=== PATIENT | male | born 1980 | race Caucasian/White ===

== ENCOUNTER 2016-11-21 12:54 | Emergency (ER) | payer OTHER ==
--- NOTE | 2016-11-21 13:30 | ERRECORD ---
[facility] HPI WOUND CHECK (13:19 AGRE) CHIEF COMPLAINT: Patient presents for evaluation of chest wound. HISTORIAN: History provided by patient, HAD A PACEMAKER DEFIBRILLATOR PLACED ABOUT 3 WEEKS AGO AND NEED THE NATALI REMOVED. NO OTHER SYMPTOMS. LOCATION: Symptoms are localized, most severe to LEFT UPPER CHEST WALL. SEVERITY: Currently there are no symptoms. TIME COURSE: Gradual onset of symptoms, There has been no change in the patient's symptoms over time. ASSOCIATED WITH: No associated symptoms. EXACERBATED BY: Patient's condition exacerbated by nothing. RELIEVED BY: Patient's condition relieved by nothing. ROS (13:21 AGRE) CONSTITUTIONAL: Historian denies chills, denies fever. SKIN: Historian denies cellulitis, denies induration, denies rash. HEMO/LYMPHATIC: Normal hematologic/lymphatic system review, Historian denies adenopathy. PAST MEDICAL HISTORY (13:12 EPIE) MEDICAL HISTORY: Past medical history includes cardiac history, unspecified arrhythmia, Past medical history includes history of diabetes, diet controlled, Past medical history includes history of hypertension. STEMI (02/2016). MALE SURGICAL HISTORY: pacemaker. PSYCHIATRIC HISTORY: Psychiatric history includes, anxiety. SOCIAL HISTORY: Patient denies alcohol use, Patient denies drug use, Patient is a former tobacco user, smoked cigarettes. KNOWN ALLERGIES No Known Allergies CURRENT MEDICATIONS Coreg: TABLET : Strength - 12.5 mg : ORAL Patient Dose: 12.5 mg Oral. (13:10 EPIE) lisinopril: TABLET : Strength - 2.5 mg : ORAL Patient Dose: 2.5 mg Oral once a day. (13:10 EPIE) Lasix: TABLET : Strength - 40 mg : ORAL Patient Dose: 40 null Oral once a day. (13:10 EPIE) unknown antibiotic (13:11 EPIE) VITAL SIGNS (13:08 EPIE) &a-1R&a+25V*p+0X*s1538H*c202B*c15G*c2P*p-0X&a-25V&a+1R Name: Elpidio Lebron : 1980 M36 MedRec: [id number] AcctNum: [id number] Prepared: SunNov 21, 2016 13:28 by Interface Page 1 of 3 pMD [facility] VITAL SIGNS: BP: 129/91, Pulse: 98, Resp: 20 (Non-Labored), Temp: 98.4 (Oral), O2 sat: 95 on Room Air, Time: 11/21/2016 13:08. PHYSICAL EXAM (13:21 AGRE) CONSTITUTIONAL: Vital signs reviewed, Patient afebrile, Patient appears non toxic, Patient appears pain free, Patient alert and oriented to person, place and time, NURSES NOTES REVIEWED. HEAD: Head exam included findings of head atraumatic, normocephalic. EYES: Eye exam included findings of eyelids normal to inspection, Extraocular muscles intact, Conjunctiva normal, Sclera normal. ENT: Ear exam normal, Nose exam normal, Mouth exam normal. NECK: Neck exam included findings of normal range of motion, no meningeal signs. RESPIRATORY CHEST: Respiratory exam included findings of no respiratory distress, Chest exam included findings of chest movement symmetrical. BACK: Back exam included findings of normal inspection, range of motion normal. UPPER EXTREMITY: Upper extremity exam included findings of inspection normal, Range of motion normal. LOWER EXTREMITY: Lower extremity exam included findings of inspection normal, Range of motion normal. NEURO: Neuro exam findings include patient oriented to person, place and time, Speech normal, Gait normal, Memory normal, Cranial nerves intact, no focal motor deficits. SKIN: Skin exam included findings of skin warm, dry, and normal in color, 14 NATALI IN WELL HEALED SURGICAL INCISION OVER THE LEFT UPPER CHEST WALL. NO SIGNS OF INFECTION. THERE IS MILD ERYTHEMA AROUND THE INSERTION OF THE NATALI , INFLAMMATORY CHANGES. PSYCHIATRIC: Psychiatric exam normal, Normal affect. DOCTOR NOTES (13:23 AGRE) TEXT: DISCUSSED WITH PATIENT FINDINGS ON EXAM, WOUND CARE, STOP SMOKING, NEED FOR FOLLOW UP. HE EXPRESSED UNDERSTANDING AND AGREEMENT. PATIENT STATUS: Patient has improved since arrival to emergency department. PATIENT PLAN: The patient will be discharged. PROBLEM LIST No recorded problems DIAGNOSIS (13:19 AGRE) FINAL: PRIMARY: STAPLE REMOVAL. PRESCRIPTION No recorded prescriptions DISPOSITION &a-1R&a+25V*p+0X*d1374K*c202B*c15G*c2P*p-0X&a-25V&a+1R Name: Elpidio Lebron : 1980 M36 MedRec: [id number] AcctNum: [id number] Prepared: SunNov 21, 2016 13:28 by Interface Page 2 of 3 pMD [facility] PATIENT: Disposition Type: Discharge, Disposition: *Discharge Home, Condition: Improved. (13:19 LATRELL) Patient left the department. (13:26 MARINA) Abad: LATRELL=MD Faustino, Samuel EPIE=Atul RN, Emilia &a-1R&a+25V*p+0X*e4278R*c202B*c15G*c2P*p-0X&a-25V&a+1R Name: Elpidio Lebron : 1980 M36 MedRec: [id number] AcctNum: [id number] Prepared: SunNov 21, 2016 13:28 by Interface Page 3 of 3 pMD MTDD
--- NOTE | 2016-11-21 13:37 | PICIS ---
[facility] EMERGENCY RECORD TRIAGE (SunNov 21, 2016 13:09 EPIE) TRIAGE NOTES: Pt reports getting alexsandra placed 2-3 weeks ago. Rports no pain or drainage. (SunNov 21, 2016 13:09 EPIE) PATIENT: NAME: Elpidio Lebron, AGE: 36, GENDER: male, : Sun1980, TIME OF GREET: SunNov 21, 2016 12:55, PREFERRED LANGUAGE: Citizen Of [place], ETHNICITY: Not or , ECODE BILLING MAP: [facility], SSN: [id number], Zip Code: [address], KG WEIGHT: [phone], PHONE: , , , PERSON ID: [id number], PCP: Conner PARKER C. [facility]. (SunNov 21, 2016 13:09 EPIE) COMPLAINT: Staple Removal. (SunNov 21, 2016 13:09 EPIE) ADMISSION: URGENCY: 5 Fast Track, ADMISSION SOURCE: Home, TRANSPORT: CAR, BED: TRIAGE. (SunNov 21, 2016 13:09 EPIE) TRIAGE SCREENING: Patient denies suicidal ideation, Patient denies presence of domestic violence. (13:12 EPIE) TREATMENTS IN PROGRESS: Treatments given Prehospital: none. (13:12 EPIE) PROVIDERS: TRIAGE NURSE: Emilia Pollard RN. (SunNov 21, 2016 13:09 EPIE) VITAL SIGNS: BP 129/91, Pulse 98, Resp 20, (Non-Labored), Temp 98.4, (Oral), O2 Sat 95, on Room Air, Time 11/21/2016 13:08. (13:08 EPIE) KNOWN ALLERGIES No Known Allergies CURRENT MEDICATIONS Coreg: TABLET : Strength - 12.5 mg : ORAL Patient Dose: 12.5 mg Oral. (13:10 EPIE) lisinopril: TABLET : Strength - 2.5 mg : ORAL Patient Dose: 2.5 mg Oral once a day. (13:10 EPIE) Lasix: TABLET : Strength - 40 mg : ORAL Patient Dose: 40 null Oral once a day. (13:10 EPIE) unknown antibiotic (13:11 EPIE) VITAL SIGNS (13:08 EPIE) VITAL SIGNS: BP: 129/91, Pulse: 98, Resp: 20 (Non-Labored), Temp: 98.4 (Oral), O2 sat: 95 on Room Air, Time: 11/21/2016 13:08. NURSING ASSESSMENT: SKIN (13:19 EPIE) CONSTITUTIONAL: Patient arrives ambulatory, Gait steady, History obtained from patient, Patient appears comfortable, Patient cooperative, Patient alert, Oriented to person, place and time, Skin warm, Skin dry, Skin normal in color, Mucous membranes pink, Mucous membranes moist, Patient is well-groomed, Pt reports getting alexsandra placed 2-3 weeks ago. Rports no pain or drainage. PAIN: Patient rates pain as 0 out of 10. &a-1R&a+25V*p+0X*z7052W*c202B*c15G*c2P*p-0X&a-25V&a+1R Name: Elpidio Lebron : 1980 6 MedRec: [id number] AcctNum: [id number] Prepared: SunNov 21, 2016 13:35 by Interface Page 1 of 4 pMD [facility] EMERGENCY RECORD SKIN: Skin assessment findings include skin warm, Skin dry, Skin normal in color, Notes: Pt has well healed wound to left upper chest. NO drainage, wound well approximated. Slight redness to puncture fernandez of alexsandra. No edema noted. NURSING PROCEDURE: DISCHARGE NOTE (13:26 EPIE) DISCHARGE: Patient discharged to home, ambulating without assistance, family driving, accompanied by //partner, Summary of Care printed/ provided, Discharge instructions given to patient, Simple or moderate discharge teaching performed, Above person(s) verbalized understanding of discharge instructions and follow-up care. BELONGINGS: Belongings and valuables with patient upon arrival to the Emergency Department include:, Belongings and valuables with patient at time of discharge include:, Belongings remain with patient, Valuables remain with patient. NURSING PROCEDURE: SUTURE/STAPLE REMOVAL (13:18 EPIE) PATIENT IDENTIFIER: Patient actively involved in identification process, Patient's identity verified by patient stating name, Patient's identity verified by hospital ID bracelet. SUTURE/STAPLE REMOVAL: Alexsandra removed, from left chest, Wound well healed, no signs of infection, Number of alexsandra removed 14, by Faustino BAE. FOLLOW-UP: Staple(s) removed without difficulty, After procedure, no dressing necessary. [facility] WOUND CHECK (13:19 AGRE) CHIEF COMPLAINT: Patient presents for evaluation of chest wound. HISTORIAN: History provided by patient, HAD A PACEMAKER DEFIBRILLATOR PLACED ABOUT 3 WEEKS AGO AND NEED THE ALEXSANDRA REMOVED. NO OTHER SYMPTOMS. LOCATION: Symptoms are localized, most severe to LEFT UPPER CHEST WALL. SEVERITY: Currently there are no symptoms. TIME COURSE: Gradual onset of symptoms, There has been no change in the patient's symptoms over time. ASSOCIATED WITH: No associated symptoms. EXACERBATED BY: Patient's condition exacerbated by nothing. RELIEVED BY: Patient's condition relieved by nothing. ROS (13:21 AGRE) CONSTITUTIONAL: Historian denies chills, denies fever. SKIN: Historian denies cellulitis, denies induration, denies rash. HEMO/LYMPHATIC: Normal hematologic/lymphatic system review, Historian denies adenopathy. PAST MEDICAL HISTORY (13:12 EPIE) MEDICAL HISTORY: Past medical history includes cardiac &a-1R&a+25V*p+0X*h3225L*c202B*c15G*c2P*p-0X&a-25V&a+1R Name: Elpidio Lebron : 1980 M36 MedRec: [id number] AcctNum: [id number] Prepared: SunNov 21, 2016 13:35 by Interface Page 2 of 4 D [facility] EMERGENCY RECORD history, unspecified arrhythmia, Past medical history includes history of diabetes, diet controlled, Past medical history includes history of hypertension. STEMI (02/2016). MALE SURGICAL HISTORY: pacemaker. PSYCHIATRIC HISTORY: Psychiatric history includes, anxiety. SOCIAL HISTORY: Patient denies alcohol use, Patient denies drug use, Patient is a former tobacco user, smoked cigarettes. PHYSICAL EXAM (13:21 AGRE) CONSTITUTIONAL: Vital signs reviewed, Patient afebrile, Patient appears non toxic, Patient appears pain free, Patient alert and oriented to person, place and time, NURSES NOTES REVIEWED. HEAD: Head exam included findings of head atraumatic, normocephalic. EYES: Eye exam included findings of eyelids normal to inspection, Extraocular muscles intact, Conjunctiva normal, Sclera normal. ENT: Ear exam normal, Nose exam normal, Mouth exam normal. NECK: Neck exam included findings of normal range of motion, no meningeal signs. RESPIRATORY CHEST: Respiratory exam included findings of no respiratory distress, Chest exam included findings of chest movement symmetrical. BACK: Back exam included findings of normal inspection, range of motion normal. UPPER EXTREMITY: Upper extremity exam included findings of inspection normal, Range of motion normal. LOWER EXTREMITY: Lower extremity exam included findings of inspection normal, Range of motion normal. NEURO: Neuro exam findings include patient oriented to person, place and time, Speech normal, Gait normal, Memory normal, Cranial nerves intact, no focal motor deficits. SKIN: Skin exam included findings of skin warm, dry, and normal in color, 14 ALEXSANDRA IN WELL HEALED SURGICAL INCISION OVER THE LEFT UPPER CHEST WALL. NO SIGNS OF INFECTION. THERE IS MILD ERYTHEMA AROUND THE INSERTION OF THE ALEXSANDRA , INFLAMMATORY CHANGES. PSYCHIATRIC: Psychiatric exam normal, Normal affect. EVENTS TRANSFER: Triage to Emergency Triage. (SunNov 21, 2016 13:09 EPIE) Emergency Triage to Emergency Room -03. (13:11 EPIE) Removed from Emergency Emergency Room -03. (13:26 EPIE) DOCTOR NOTES (13:23 AGRE) TEXT: DISCUSSED WITH PATIENT FINDINGS ON EXAM, WOUND CARE, STOP SMOKING, NEED FOR FOLLOW UP. HE EXPRESSED UNDERSTANDING AND AGREEMENT. &a-1R&a+25V*p+0X*i9320O*c202B*c15G*c2P*p-0X&a-25V&a+1R Name: MelchorElpidio griggs Corine : 1980 M36 MedRec: [id number] AcctNum: [id number] Prepared: SunNov 21, 2016 13:35 by Interface Page 3 of 4 pMD [facility] EMERGENCY RECORD PATIENT STATUS: Patient has improved since arrival to emergency department. PATIENT PLAN: The patient will be discharged. SUTURE/STAPLE REMOVAL (13:23 AGRE) SUTURE/STAPLE REMOVAL: Side and/or site verified, Sterile procedures observed, Verbal consent obtained, Staple(s) removed from laceration, to chest, No drainage present, Staple(s) removed without difficulty, Number of alexsandra removed 14, Patient tolerated the procedure well. PROBLEM LIST No recorded problems DIAGNOSIS (13:19 AGRE) FINAL: PRIMARY: STAPLE REMOVAL. DISPOSITION PATIENT: Disposition Type: Discharge, Disposition: *Discharge Home, Condition: Improved. (13:19 AGRE) Patient left the department. (13: EPIE) INSTRUCTION (13:19 AGRE) DISCHARGE: STAPLE REMOVAL, NO COMPLICATION. FOLLOWUP: Conner PARKER, Radha GARCIA, [facility], [facility] [id number], [phone]. PRESCRIPTION No recorded prescriptions IMAGING (13: EPIE) *DISCHARGE INSTRUCTIONS RECEIPT: Image captured from scanner. *SUPPLY CHARGE SHEET: Image captured from scanner. ADMIN (13:24 AGRE) DIGITAL SIGNATURE: MD Harmon Andrea. Abad: AGRE=MD Harmon Andrea EPIE=YELITZA Pollard, Emilia &a-1R&a+25V*p+0X*r3084N*c202B*c15G*c2P*p-0X&a-25V&a+1R Name: Elpidio Lebron : 1980 M36 MedRec: [id number] AcctNum: [id number] Prepared: SunNov 21, 2016 13:35 by Interface Page 4 of 4 pMD MTDD
== END 2016-11-21 13:26 | disposition home or self-care (01) ==
LOC: NAV ERS 12:54
DX: S21.112D Laceration without foreign body of left front wall of thorax without penetration into thoracic cavity, subsequent encounter (principal); I10 Essential (primary) hypertension; E11.9 Type 2 diabetes mellitus without complications; I25.2 Old myocardial infarction; F41.9 Anxiety disorder, unspecified; Z87.891 Personal history of nicotine dependence; Z79.899 Other long term (current) drug therapy; X58.XXXD Exposure to other specified factors, subsequent encounter
CPT/HCPCS: 99282

== ENCOUNTER 2017-06-21 10:18 | Emergency (ER) | payer SELFPAY ==
[2017-06-21] MEDS ORDERED: Acetaminophen 500 MG TAB ONE (10:53)
== END 2017-06-21 10:57 | disposition home or self-care (01) ==
LOC: NAV ERS 10:18
DX: K02.9 Dental caries, unspecified (principal); K04.7 Periapical abscess without sinus; E11.9 Type 2 diabetes mellitus without complications; I49.9 Cardiac arrhythmia, unspecified; I10 Essential (primary) hypertension; I25.2 Old myocardial infarction; F41.9 Anxiety disorder, unspecified; F17.210 Nicotine dependence, cigarettes, uncomplicated
CPT/HCPCS: 99282

== ENCOUNTER 2017-08-11 22:12 | Emergency (ER) | payer SELFPAY ==
[2017-08-11] MEDS ORDERED: Clindamycin 300 MG/2 ML VIAL ONE (23:20)
[2017-08-11] MEDS ORDERED: Clindamycin 150 MG CAP ONE (23:21)
[2017-08-11] MEDS ORDERED: HYDROcodone/Acetaminophen 7.5/325 mg Tablet ONE (23:23)
== END 2017-08-11 23:40 | disposition home or self-care (01) ==
LOC: NAV ERS 22:12
DX: K02.9 Dental caries, unspecified (principal); K04.7 Periapical abscess without sinus; I49.9 Cardiac arrhythmia, unspecified; E11.9 Type 2 diabetes mellitus without complications; I10 Essential (primary) hypertension; I25.2 Old myocardial infarction; F17.210 Nicotine dependence, cigarettes, uncomplicated
CPT/HCPCS: 99282; J3490

== ENCOUNTER 2017-12-23 04:53 | Emergency (ER) | payer SELFPAY ==
[2017-12-23] MEDS ORDERED: Amoxicillin/Potassium Clav 875 MG TAB ONE (05:23)
[2017-12-23] MEDS ORDERED: Acetaminophen/Codeine 30-300mg Tablet ONE (05:24)
== END 2017-12-23 05:50 | disposition home or self-care (01) ==
LOC: NAV ERS 04:53
DX: K02.9 Dental caries, unspecified (principal); E11.9 Type 2 diabetes mellitus without complications; I10 Essential (primary) hypertension; I25.2 Old myocardial infarction; F17.210 Nicotine dependence, cigarettes, uncomplicated
CPT/HCPCS: 99282

== ENCOUNTER 2018-05-08 12:02 | Outpatient (CLI) | payer OTHER ==
--- NOTE | 2018-05-08 13:01 | RAD ---
PA AND LATERAL CHEST: Date: 05/08/18 HISTORY: Shortness of breath. FINDINGS: Heart size is within normal limits. An internal defibrillator device is present. The lungs are clear of infiltrates. IMPRESSION: No active intrathoracic disease. POS: [facility]
== END 2018-05-08 12:03 | disposition home or self-care (01) ==
LOC: NAV RAD 12:02
PROVIDERS: ATTEND Family Medicine
DX: Z02.71 Encounter for disability determination (principal); I50.22 Chronic systolic (congestive) heart failure
CPT/HCPCS: 71046

== ENCOUNTER 2019-04-24 12:04 | Emergency (ER) | payer OTHER, SELFPAY ==
[2019-04-24 13:14] LABS: ALT (SGPT) 38 U/L (8-55); AST (SGOT) 23 U/L (5-34); Acetaminophen Less than 6.0 mcg/mL (10.0-30.0); Albumin 4.7 g/dL (3.5-5.0); Alcohol Less than 10 mg/dL (Less than 10); Alkaline Phosphatase 63 U/L (40-150); Anion Gap 18 mmol/L (10-20); BUN (Urea Nitrogen) 12 mg/dL (8.9-20.6); Bilirubin, Total 0.6 mg/dL (0.2-1.2); CK (CPK) 284 U/L (30-200); Calc. Creatinine Clearance 0 mL/min (70-130); Calcium 10.2 mg/dL (7.8-10.44); Carbon Dioxide 21 mmol/L (22-29); Chloride 103 mmol/L (98-107); Estimated GFR-MDRD 60; Globulin 3.1 g/dL (2.4-3.5); Glucose 241 mg/dL (70-105); Potassium 3.9 mmol/L (3.5-5.1); Protein, Total 7.8 g/dL (6.0-8.3); Salicylate Less than 8.0 mg/dL (15.0-30.0); Sodium 138 mmol/L (136-145)
[2019-04-24 13:19] LABS: #Basophils 0.1 thou/uL (0.0-0.2); #Eosinphils 0.1 thou/uL (0.0-0.7); #Lymphocytes 2.4 thou/uL (1.20-3.40); #Monocytes 0.4 thou/uL (0.11-0.59); #Neutrophils 9.7 thou/uL (1.40-6.50); %Basophils 1.1 % (0.0-1.0); %Eosinophils 0.6 % (0.0-10.0); %Lymphocytes 18.7 % (21.0-51.0); %Monocytes 3.4 % (0.0-10.0); %Neutrophils 76.2 % (42.0-75.0); Hemoglobin 15.8 g/dL (14.0-18.0); Mean Corpuscular HGB CONC 32.5 g/dL (32.0-36.0); Mean Corpuscular Hemoglobin 27.1 pg (27.0-31.0); Mean Corpuscular Volume 83.4 fL (78.0-98.0); Mean Platelet Volume 5.2 fL (7.4-10.4); Platelet Count 315 thou/uL (130-400); RBC Distribution Width 11.6 % (11.5-14.5); Red Blood Cell (RBC) Count 5.84 mill/uL (4.70-6.10); White Blood Cell (WBC) Count 12.8 thou/uL (4.8-10.8)
--- NOTE | 2019-04-24 13:21 | RAD ---
CHEST 1 VIEW: Date: 04/24/19 INDICATION: Altered mental status. COMPARISON: Prior exam dated 05/08/18. FINDINGS: AICD is unchanged. Mild cardiomegaly persists. Lungs are clear. No pleural effusion or pneumothorax e vident. No acute osseous abnormality evident. IMPRESSION: No acute abnormality. POS: [facility]
[2019-04-24 14:21] LABS: Bilirubin Negative (Negative); Blood, Urine Trace (Negative); Clarity Clear (Clear); Glucose, Urine (Dipstick) 250 mg/dL (Negative); Leukocyte Trace (Negative); Nitrite Negative (Negative); Protein, Urine (Dipstick) Negative (Neg-Trace); Urobilinogen 0.2 mg/dL (Less than 2)
[2019-04-24 14:31] LABS: Amphetamine Not Detected (NotDetected); Barbiturates Screen Not Detected (NotDetected); Benzodiazepine Screen Not Detected (NotDetected); Cocaine Metabolite Screen Not Detected (NotDetected); Medtox Control Line Valid? VALID (VALID); Methadone Not Detected (NotDetected); Methamphetamine Not Detected (NotDetected); Opiate Screen Not Detected (NotDetected); Oxycodone Screen Not Detected (NotDetected); Phencyclidine (PCP) Not Detected (NotDetected); THC/Cannabinoid Screen Detected (NotDetected); Tricyclic Screen Not Detected (NotDetected)
[2019-04-24 14:46] LABS: Bacteria/HPF Rare-Few HPF (None Seen); RBC/HPF 0-3 HPF (0-3); Squamous Epithelial None Seen HPF (0-3); WBC/HPF 0-3 HPF (0-3)
== END 2019-04-24 18:52 | disposition short-term general hospital (02) ==
LOC: NAV ERS 12:04
DX: F22 Delusional disorders (principal); I49.9 Cardiac arrhythmia, unspecified; F17.210 Nicotine dependence, cigarettes, uncomplicated; E11.9 Type 2 diabetes mellitus without complications; I10 Essential (primary) hypertension; F41.9 Anxiety disorder, unspecified; F43.10 Post-traumatic stress disorder, unspecified
CPT/HCPCS: 36415; 71045; 80053; 80306; 80307; 81003; 81015; 82550; 84443; 84484; 85025; 93005; 96360

== ENCOUNTER 2019-05-28 10:45 | Emergency (ER) | payer SELFPAY | END 2019-05-28 11:36 | disposition home or self-care (01) | LOC: NAV ERS 10:45 | DX: R23.8 Other skin changes (principal); M79.671 Pain in right foot; M79.672 Pain in left foot; I10 Essential (primary) hypertension; I49.9 Cardiac arrhythmia, unspecified; Z95.5 Presence of coronary angioplasty implant and graft; E11.9 Type 2 diabetes mellitus without complications; F41.9 Anxiety disorder, unspecified; F32.9 Major depressive disorder, single episode, unspecified; F43.10 Post-traumatic stress disorder, unspecified; F17.210 Nicotine dependence, cigarettes, uncomplicated | CPT/HCPCS: 93005 ==